=== PATIENT | female | born 1990 | race Caucasian/White ===

== ENCOUNTER → 2016-08-21 | Outpatient (CLI) | payer OTHER ==
[~2016-08-21] MED LIST: HYDROCODON-ACE1 EAC7; IBUPROFEN 400400 M2; IBUPROFEN 600600 M1 PO; NOHOMEMEDICATIONS
== END ==
LOC: ULTRA 08:23
DX: R16.2 Hepatomegaly with splenomegaly, not elsewhere classified (principal); K76.0 Fatty (change of) liver, not elsewhere classified

== ENCOUNTER → 2016-08-24 | Outpatient (CLI) | payer OTHER | LOC: NUC 09:49 | DX: R10.11 Right upper quadrant pain (principal) ==

== ENCOUNTER 2017-05-11 11:16 | Emergency (ER) | payer BC ==
[~2017-05-11] VITALS: Ht 165.1 cm; Wt 81.7 kg
[2017-05-11 11:40] LABS: ABSOLUTE NEUTROPHILS 4.7 thou/uL (1.4-8.2); BASOPHILS 0.7 % (0.0-2.0); EOSINOPHILS 1.5 % (0.0-3.0); HEMATOCRIT 42.6 % (37.0-47.0); LYMPHOCYTES 25.2 % (24.0-44.0); MCH 27.5 pg (26.0-34.0); MCV 83.3 fL (80.0-100.0); PLATELET COUNT 262 thou/uL (150-400); POLYS 64.6 % (36.0-66.0); RBC 5.11 mil/uL (4.20-5.00); WBC 7.2 thou/uL (4.0-11.0)
[2017-05-11 11:48] LABS: CALCIUM 9.1 mg/dL (8.5-10.1); CREATININE 0.6 mg/dL (0.6-1.0); POTASSIUM 3.8 mmol/L (3.5-5.1)
[2017-05-11 11:54] LABS: ALBUMIN 3.8 g/dL (3.4-5.0); TOTAL BILIRUBIN 1.2 mg/dL (<0.1-1.0); TOTAL PROTEIN 7.1 g/dL (6.4-8.2)
[2017-05-11 12:48] LABS: URINE BILIRUBIN NEGATIVE (Negative); URINE BLOOD NEGATIVE (Negative); URINE CLARITY CLEAR; URINE COLOR YELLOW; URINE GLUCOSE-RANDOM* NEGATIVE (Negative); URINE KETONES NEGATIVE (Negative); URINE LEUKOCYTES NEGATIVE (Negative); URINE NITRITE NEGATIVE (Negative); URINE PROTEIN (DIPSTICK) NEGATIVE (Negative); URINE UROBILINOGEN 0.2 E.U./dl (0.2-1.0)
[2017-05-11] MEDS ORDERED: VIBRAMYCIN 100100 M2 PO (13:37)
[2017-05-11] MEDS ORDERED: NAPROSYN500 MG PO (13:48)
[2017-05-11 14:00] VITALS: BP 113/80
== END 2017-05-11 14:01 | disposition home or self-care (01) ==
LOC: ER 11:16
PROVIDERS: Physician Assistant
DX: L02.211 Cutaneous abscess of abdominal wall (principal)